=== PATIENT | male | born 1970 | race Two or more races ===

== ENCOUNTER 2020-03-15 15:42 | Emergency (ER) | payer SELFPAY ==
[~2020-03-15] VITALS: Ht 167.6 cm; Wt 64.0 kg
[2020-03-15] MEDS ORDERED: KETOROLAC 30MG/ML VIAL IM ONE (16:30)
[2020-03-15 18:05] VITALS: BP 128/76
== END 2020-03-15 18:02 | disposition home or self-care (01) ==
LOC: ER 15:42
DX: R07.89 Other chest pain (principal); M25.511 Pain in right shoulder
CPT/HCPCS: 71045; 73030; 96372; 99284; J1885